=== PATIENT | male | born 1960 ===

== ENCOUNTER → 2017-08-03 | Outpatient (CLI) | payer OTHER | LOC: GMAM 12:07 → EDSTATUS 13:51 | PROVIDERS: ATTEND Family Medicine | DX: E78.1 Pure hyperglyceridemia (principal) ==

== ENCOUNTER → 2017-09-05 | Outpatient (CLI) | payer SELFPAY | LOC: GMAM 13:15 | PROVIDERS: ATTEND Family Medicine | DX: R50.9 Fever, unspecified (principal) ==

== ENCOUNTER → 2018-08-05 | Outpatient (CLI) | payer OTHER | LOC: GMAM 10:31 | PROVIDERS: ATTEND Family Medicine | DX: Z12.5 Encounter for screening for malignant neoplasm of prostate (principal) ==

== ENCOUNTER → 2018-08-30 | Outpatient (CLI) | payer OTHER | LOC: GMAJS 11:24 | PROVIDERS: ATTEND Physician Assistant | DX: R10.13 Epigastric pain (principal) ==